=== PATIENT | male | born 1995 | race Caucasian/White ===

== ENCOUNTER 2021-12-27 17:04 | Emergency (ER) | payer SELFPAY ==
[2021-12-27] MEDS ORDERED: Mag-Al Plus 1200 MG/1200 MG/120 MG/30 ML UDCUP ONE (17:41)
[2021-12-27] MEDS ORDERED: Ketorolac Tromethamine 30 MG/ML VIAL ONE (17:41)
[2021-12-27] MEDS ORDERED: Bicillin LA 1.2 MILLION UNITS/2 ML SYRINGE ONE (18:02)
[2021-12-27] MEDS ORDERED: Acetaminophen 500 MG TAB ONE (18:10)
== END 2021-12-27 20:11 | disposition home or self-care (01) ==
LOC: CSHERS 17:04
DX: J02.0 Streptococcal pharyngitis (principal)
CPT/HCPCS: 93005; 96372; 96374; J0561; J1885

== ENCOUNTER 2022-01-25 14:09 | Emergency (ER) | payer SELFPAY ==
[2022-01-25] MEDS ORDERED: Ketorolac Tromethamine 30 MG/ML VIAL ONE (15:12)
[2022-01-25] MEDS ORDERED: Acetaminophen 500 MG TAB ONE (15:12)
== END 2022-01-25 16:02 | disposition home or self-care (01) ==
LOC: CSHERS 14:09
DX: J02.9 Acute pharyngitis, unspecified (principal)
CPT/HCPCS: 87081; 87430; 96372; 99283; J1885

== ENCOUNTER 2022-08-04 12:23 | Emergency (ER) | payer BC ==
[2022-08-04] MEDS ORDERED: Acetaminophen 500 MG TAB ONE (13:09)
[2022-08-04] MEDS ORDERED: Dexamethasone 10 MG/ML VIAL ONE (13:09)
[2022-08-04] MEDS ORDERED: Ondansetron ODT 4 MG TAB ONE (13:25)
[2022-08-04 15:08] LABS: MONO NEGATIVE CONTROL ZONE White (Negative) (White); MONO POSITIVE CONTROL Pink Line (Positive) (PINK/RED); Mononucleosis NEGATIVE (NEGATIVE)
== END 2022-08-04 15:15 | disposition home or self-care (01) ==
LOC: CSHERS 12:23
DX: J03.90 Acute tonsillitis, unspecified (principal); B34.9 Viral infection, unspecified; Z20.822 Contact with and (suspected) exposure to COVID-19
CPT/HCPCS: 36415; 86308; 87081; 87430; 87804; 99283; J1100; Q0162; U0003; U0005